=== PATIENT | female | born 1965 | race Two or more races ===

== ENCOUNTER 2025-01-07 06:03 | Day surgery (SDC) | payer OTHER ==
[2025-01-02 13:59] VITALS: BMI 35.2
[2025-01-07] MEDS ORDERED: ONABOTULINUMTOXINA 200 UNIT/VIAL VIAL IM ONE (07:20)
[2025-01-07] MEDS ORDERED: BOTULINUM TOXIN A 100 UNITS VIAL IM ONE ×2 (07:20)
[2025-01-07] MEDS ORDERED: BUPIVACAINE HCL/PF 0.25% (2.5MG/ML) 10 ML VIAL ONE (07:28)
[2025-01-07] MEDS ORDERED: ONDANSETRON 4 MG/2 ML VIAL IVPUSH PRN (07:34)
[2025-01-07] MEDS ORDERED: LACTATED RINGERS SOLUTION 1,000 ML IV SCH (07:45)
[2025-01-07] MEDS ORDERED: DEXMEDETOMIDINE HCL 200 MCG/2 ML IVPB ONE (07:49)
[2025-01-07] MEDS ORDERED: PROPOFOL 40 ML ONE (07:50)
[2025-01-07] MEDS ORDERED: SUCCINYLCHOLINE CHLORIDE 200 MG/10 ML SYRINGE ONE (07:51)
[2025-01-07] MEDS ORDERED: MIDAZOLAM HCL 2 MG/2 ML SINGLE DOSE VIAL ONE (07:51)
[2025-01-07] MEDS: ceFAZolin 2 GRAM PREMIX BAG IVPB ONE (08:09)
[2025-01-07] MEDS: ONABOTULINUMTOXINA 200 UNIT/VIAL VIAL IM ONE ×2 (08:27)
[2025-01-07 10:15] VITALS: TEMP 97.3
[2025-01-07 11:08] VITALS: RESP 20
[2025-01-07 11:11] VITALS: BP 115/74; PULSE 75
== END 2025-01-07 11:00 | disposition home or self-care (01) ==
LOC: JASU-SURG 06:03
PROVIDERS: ATTEND Surgery
PROC: 3E023GC Introduction of Other Therapeutic Substance into Muscle, Percutaneous Approach (ICD-10-PCS; principal; 2025-01-07 08:00)
DX: K43.9 Ventral hernia without obstruction or gangrene (principal)
CPT/HCPCS: 82962; 94760; J0585

== ENCOUNTER 2025-03-06 06:15 | Day surgery (SDC) | payer OTHER ==
[2025-03-01 12:01] VITALS: BMI 35.2
[2025-03-06] MEDS: cefOXitin SODIUM 2 GM VIAL (RESTRICTED TO ID) IVPB ONE
[2025-03-06] MEDS ORDERED: BUPIVACAINE HCL/PF 0.25% (2.5MG/ML) 10 ML VIAL ONE (07:07)
[2025-03-06] MEDS ORDERED: cefOXitin SODIUM 2 GM VIAL (RESTRICTED TO ID) IVPB ONE (07:07)
[2025-03-06] MEDS ORDERED: INDOCYANINE GREEN 25 MG/10 ML VIAL IVPUSH ONE (07:07)
[2025-03-06] MEDS ORDERED: HEPARIN NA (PORCINE) 5,000 UNITS/ML 1ML VIAL ONE (07:07)
[2025-03-06] MEDS ORDERED: LIDOCAINE HCL/PF 2% SDV 5ML VIAL ONE (07:47)
[2025-03-06] MEDS ORDERED: PROPOFOL 20 ML ONE ×2 (07:48→13:03)
[2025-03-06] MEDS ORDERED: MIDAZOLAM HCL 2 MG/2 ML SINGLE DOSE VIAL ONE (07:48)
[2025-03-06] MEDS ORDERED: ROCURONIUM BROMIDE 50 MG/5 ML SYRINGE ONE ×3 (07:48→12:18)
[2025-03-06] MEDS ORDERED: SUCCINYLCHOLINE CHLORIDE 200 MG/10 ML SYRINGE ONE (07:48)
[2025-03-06] MEDS: BUPIVACAINE HCL/PF 0.25% (2.5MG/ML) 10 ML VIAL IJ ONE ×3 (08:56)
[2025-03-06] MEDS ORDERED: SUGAMMADEX SODIUM 200 MG/2 ML VIAL ONE (13:25)
[2025-03-06] MEDS ORDERED: ONDANSETRON 4 MG/2 ML VIAL ONE ×2 (16:08→18:13)
[2025-03-06] MEDS ORDERED: PROMETHAZINE HCL 25 MG/1 ML VIAL IVPB PRN (16:12)
[2025-03-06] MEDS: ONDANSETRON 4 MG/2 ML VIAL IVPUSH PRN (16:14)
[2025-03-06 17:17] VITALS: RESP 20
[2025-03-06 18:35] VITALS: BP 127/75; PULSE 87; TEMP 97.8
== END 2025-03-06 18:48 | disposition home or self-care (01) ==
LOC: JASU-SURG 06:15
PROVIDERS: ATTEND Surgery
PROC: 8E0W4CZ Robotic Assisted Procedure of Trunk Region, Percutaneous Endoscopic Approach (ICD-10-PCS; 2025-03-06)
PROC: 0WUF4JZ Supplement Abdominal Wall with Synthetic Substitute, Percutaneous Endoscopic Approach (ICD-10-PCS; principal; 2025-03-06 08:00)
DX: K43.2 Incisional hernia without obstruction or gangrene (principal); M62.08 Separation of muscle (nontraumatic), other site
CPT/HCPCS: 49617; S2900; 82962; 86850; 86900; 86901; 88300-TC; 94760; C1781